=== PATIENT | male | born 1995 | race Caucasian/White ===

== ENCOUNTER 2017-02-17 18:38 | Emergency (ER) | payer OTHER ==
[~2017-02-17] VITALS: Ht 175.3 cm; Wt 79.4 kg
[2017-02-17 20:51] VITALS: BP 136/74
[2017-02-17] MEDS ORDERED: HYDROcodone-ACET 5/325MG TAB PO ONE (21:45)
[2017-02-17] MEDS ORDERED: KETOROLAC TROMETH 60MG/2ML VIAL IM ONE ×2 (21:45→21:52)
[2017-02-17] MEDS ORDERED: HYDROcodone-ACET 5/325MG TAB ONE (21:52)
[2017-02-17] MEDS ORDERED: NEOMYCIN-BACITRACIN-POLYM UNITDOSE PKG TOP OINT TOP ONE (23:00)
== END 2017-02-17 23:11 | disposition home or self-care (01) ==
LOC: EDBD 18:38 → ER 18:38
DX: S01.311A Laceration without foreign body of right ear, initial encounter (principal); Z88.1 Allergy status to other antibiotic agents; V73.6XXA Passenger on bus injured in collision with car, pick-up truck or van in traffic accident, initial encounter; Y93.89 Activity, other specified; Y92.89 Other specified places as the place of occurrence of the external cause; Y99.8 Other external cause status
CPT/HCPCS: 12013; 70450; 96372; 99285; J1885

== ENCOUNTER → 2021-10-16 | Emergency (ER) | payer MEDICAID, OTHER | END | disposition left against medical advice (07) | LOC: ER 16:45 → EDUNIT# 16:45 | DX: S09.93XA Unspecified injury of face, initial encounter (principal); Z53.21 Procedure and treatment not carried out due to patient leaving prior to being seen by health care provider; X58.XXXA Exposure to other specified factors, initial encounter; Y93.89 Activity, other specified; Y92.89 Other specified places as the place of occurrence of the external cause; Y99.8 Other external cause status ==